=== PATIENT | female | born 1975 | race Caucasian/White ===

== ENCOUNTER 2017-09-09 09:35 | Emergency (ER) | payer OTHER ==
[~2017-09-09] VITALS: Ht 162.6 cm; Wt 73.1 kg
[2017-09-09] MEDS ORDERED: MOXIFLOXACIN3 ML (09:58)
--- NOTE | 2017-09-09 10:05 | CT SCAN REPORT ---
EXAMINATION: CT HEAD WITHOUT CONTRAST CLINICAL INFORMATION: Altered mental status. COMPARISON: None TECHNIQUE: Contiguous axial imaging was performed from the skull base to vertex without intravenous administration of contrast. DLP: 624 mGy-cm FINDINGS: Brain parenchyma: Normal attenuation. Cel[place]-white matter differentiation is well preserved. No evidence of an acute major vascular territory infarction, hemorrhage, mass or midline shift. Cerebrospinal fluid spaces: Normal. No hydrocephalus or extra-axial fluid collections. Cerebellum and brainstem: Normal. The 4th ventricle is midline in position. The cerebellopontine angles are normal. Calvarium and temporomandibular joints: Calvarium is intact. Mastoid air cells and middle ear cavities are well aerated. The TMJs are normal. Paranasal sinuses and orbits: The visualized paranasal sinuses are well aerated. Orbits are unremarkable. Other: No acute findings in the visualized extracranial soft tissues. IMPRESSION: No acute intracranial pathology. Note: Discussed negative test result with Dr. Lancaster of the Emergency Room at 10:00 AM.
[2017-09-09 10:06] LABS: ABSOLUTE BASOPHIL COUNT 0 /CUMM (0.0-0.2); ABSOLUTE EOSINOPHIL COUNT 0.1 /CUMM (0.0-0.7); ABSOLUTE GRANULOCYTE CT 2.8 /CUMM (1.4-6.5); ABSOLUTE LYMPH COUNT 1.8 /CUMM (1.2-3.4); ABSOLUTE MONOCYTE COUNT 0.4 /CUMM (0.10-0.60); BASOPHIL % 0.4 % (0.0-2.0); EOSINOPHIL % 1.8 % (0-5); GRANULOCYTE % 54.6 % (42.2-75.2); MEAN CORPUSCULAR HGB 29.3 PG (27.0-31.0); MEAN CORPUSCULAR HGB CONC 33.8 G/DL (33.0-37.0); MEAN CORPUSCULAR VOLUME 86.7 FL (81.0-99.0); MEAN PLATELET VOLUME 7.5 FL (7.4-10.4); PLATELET COUNT 169 /CUMM (130-400); RBC DISTRIBUTION WIDTH 12.9 % (11.5-14.5); RED BLOOD CELL CT 5.19 /CUMM (4.20-5.40); WHITE BLOOD CELL COUNT 5.1 /CUMM (4.8-10.8)
[2017-09-09 10:15] LABS: PT 14.2 SEC (9.4-12.5)
--- NOTE | 2017-09-09 11:53 | ED GENERAL ADULT ---
History of Present Illness General Chief Complaint: Neuro Symptoms/ Deficit Stated Complaint: BIBA STROKE SYMPTOMS Source: patient Exam Limitations: no limitations Vital Signs & Intake/Output Vital Signs & Intake/Output Vital Signs Date Time Temp Pulse Resp B/P B/P Pulse O2 O2 Flow FiO2 Mean Ox Delivery Rate 09/09 1300 98.5 72 18 118/78 98 Room Air 09/09 1152 97.0 64 18 112/64 99 Room Air 09/09 1123 98.1 65 20 105/67 95 Room Air 09/09 0954 98 Room Air 09/09 0949 98.8 73 18 121/75 99 Room Air 09/09 0935 87 18 152/90 99 Room Air Allergies Coded Allergies: No Known Allergies (09/09/17) Reconcile Medications Moxifloxacin HCl (Moxifloxacin) 0.5 % DROPS LEFT EYE INFECTION CYST (Reported) Triage Note: BIBA FOR ?STROKE ALERT, SENT IMMEDIATELY TO CT ON ARRIVAL. 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 HX TIA AND PARTIAL HYSTERECTOMY, DENIES SMOKING OR CONTRACEPTIVE USE. ARRIVES WITH NIHSS 0, FULL STRENGTH 5/5 BILATERALLY WITH SYMMETRICAL SENSATION TO ALL EXTREMITIES AND FACE. NO FACIAL DROOP OR SLURRED SPEECH ON ARRIVAL. MANAGING SECRETIONS AND ABLE TO FOLLOW ALL DIRECTIONS. NO NYSTAGMUS OR LATERAL GAZES, PERRLA. HAS SCLERAL REDNESS TO LEFT EYE THAT PT REPORTS IS UNRELATED AND DUE TO SURGERY ON A CYST. Triage Nurses Notes Reviewed? yes Onset: Abrupt Duration: hour(s): Timing: recent history : No Patient currently breastfeeds: No HPI: 09/09/17 2 PM 42-year-old female presents to the emergency department with sudden onset of left facial droop and right arm paresthesias. EMS said that she had slurred speech when she was seen and evaluated. She was immediately taken to the CAT scan on arrival and a CT scan of the head was negative. Shortly after her symptoms resolved. Now at 1:45 PM her neurological exam is completely normal. She has had similar episodes the last of which occurred 2 years ago. According to her entire workup was negative. This was done at [facility] according to the family. Past History Travel History Traveled to [place] past 21 day No Medical History Any Pertinent Medical History? see below for history Neurological: TIA EENT: NONE Cardiovascular: NONE Respiratory: NONE Gastrointestinal: NONE Hepatic: NONE Renal: NONE Musculoskeletal: NONE Psychiatric: NONE Endocrine: NONE Blood Disorders: NONE Cancer(s): NONE Surgical History Surgical History: hysterectomy Psychosocial History What is your primary language Filipino Tobacco Use: Never used ETOH Use: denies use Illicit Drug Use: denies illicit drug use Family History Hx Contributory? No Review of Systems Review of Systems Constitutional: Denies: fever. EENTM: Reports: see HPI. Respiratory: Denies: short of breath. Cardiovascular: Denies: chest pain. GI: Reports: no symptoms. Genitourinary: Reports: no symptoms. Musculoskeletal: Reports: no symptoms. Skin: Reports: no symptoms. Neurological/Psychological: Reports: see HPI. Hematologic/Endocrine: Reports: no symptoms. Immunologic/Allergic: Reports: no symptoms. Physical Exam Physical Exam General Appearance: alert, awake, anxious, moderate distress Head: LEFT FACIAL DROOP Eyes: Bilateral: normal appearance, PERRL, EOMI. Ears, Nose, Throat: normal pharynx, normal ENT inspection Neck: normal inspection, supple Respiratory: normal breath sounds, chest non-tender, no respiratory distress Cardiovascular: regular rate/rhythm Peripheral Pulses: 4+ radial (R), 4+ radial (L) Gastrointestinal: soft, non-tender Back: normal range of motion Extremities: normal inspection Neurologic/Psych: no motor/sensory deficits (LEFT FACIAL WEAKNESS), awake, alert , oriented x 3 Skin: intact, normal color, warm/dry Core Measures ACS in differential dx? No CVA/TIA Diagnosis: Yes NIH Stroke Scale (24 Hours) NIH Stroke Scale (24 Hours) Response Value Level of Consciousness alert 0 LOC Questions answers both correctly 0 LOC Commands obeys both correctly 0 Best Gaze normal 0 Visual [place] no visual loss 0 Facial Paresis minor 1 Motor Arm - Left no drift 0 Motor Arm - Right no drift 0 Motor Leg - Left no drift 0 Motor Leg - Right no drift 0 Limb Ataxia no ataxia 0 Sensory normal 0 Best Language no aphasia 0 Dysarthria normal articulation 0 Extinction and Inattention no neglect 0 Total 1 Date Last Known Well: 09/09/17 Time Last Known Well: 1300 Symptom start date: 09/09/17 Symptom start time: 1301 Reason tPA not ordered Medical Contraindication Sepsis Present: No Sepsis Focused Exam Completed? No Progress Differential Diagnoses I considered the following diagnoses in my evaluation of the patient: Vascular migraine, TIA, CVA, subarachnoid hemorrhage Plan of Care: Orders Procedure Date/time Status Saline Lock 09/09 1005 Active Add-on Test (ER Only) 09/09 1005 Active URINE DRUG SCREEN FOR ER ONLY 09/09 1005 Active Add-on Test (ER Only) 09/09 1004 Active PROTHROMBIN TIME 09/09 956 Complete HUMAN BETA HCG SCREEN 09/09 956 Complete ETHANOL 09/09 956 Complete COMPREHENSIVE METABOLIC PANEL 09/09 956 Complete CBC WITHOUT DIFFERENTIAL 09/09 956 Complete EKG 09/09 956 Active Laboratory Tests 09/09/17 0957: Anion Gap 13, Estimated GFR > 60, BUN/Creatinine Ratio 17.1, Glucose 105 H, Calcium 9.1, Total Bilirubin 0.7, AST 22, ALT 27, Alkaline Phosphatase 54, Total Protein 6.8, Albumin 4.2, Globulin 2.6, Albumin/Globulin Ratio 1.6, Total Beta HCG NEGATIVE, PT 14.2 H, INR 1.30 H, CBC w Diff NO MAN DIFF REQ, RBC 5.19, MCV 86.7, MCH 29.3, MCHC 33.8, RDW 12.9, MPV 7.5, Gran % 54.6, Lymphocytes % 35.2, Monocytes % 8.0, Eosinophils % 1.8, Basophils % 0.4, Absolute Granulocytes 2.8, Absolute Lymphocytes 1.8, Absolute Monocytes 0.4, Absolute Eosinophils 0.1, Absolute Basophils 0, Serum Alcohol < 10.0 Initial ED EKG: NSR Departure Departure Disposition: [facility] ([facility]) Condition: Stable Clinical Impression Primary Impression: Facial weakness Secondary Impressions: TIA (transient ischemic attack) Referrals: Alpesh MCKEE,Inocente Saenz (PCP/Family) Departure Forms: Customer Survey General Discharge Information Comments At the request of the family the patient was transferred to [facility] for further care Critical Care Note Critical Care Note Critical Care Time: 30-74 min
[2017-09-09 13:00] VITALS: BP 118/78
== END 2017-09-09 13:50 | disposition short-term general hospital (02) ==
LOC: ERH 09:35
PROVIDERS: Emergency Medicine
DX: G45.9 Transient cerebral ischemic attack, unspecified (principal)
CPT/HCPCS: 80307; 93005; 93010; 96374; G0480; J0131